=== PATIENT | female | born 1970 | race Caucasian/White ===

== ENCOUNTER 2019-08-02 07:31 | Emergency (ER) | payer BC, MEDICAID ==
[~2019-08-02] VITALS: Ht 162.6 cm; Wt 72.7 kg
[2019-08-02] MEDS ORDERED: normal saline 1000ml 1,000 ML IVB ONE (08:00)
[2019-08-02 08:22] VITALS: BP 145/92
== END 2019-08-02 08:27 | disposition left against medical advice (07) ==
LOC: ER 07:32
DX: J06.9 Acute upper respiratory infection, unspecified (principal); R00.0 Tachycardia, unspecified; I10 Essential (primary) hypertension; F17.200 Nicotine dependence, unspecified, uncomplicated
CPT/HCPCS: 87502; 87503; 99283

== ENCOUNTER 2021-03-23 06:14 | Emergency (ER) | payer BC ==
--- NOTE | 2021-03-23 06:41 | NUR ---
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
--- NOTE | 2021-03-23 07:45 | NUR ---
PT CAME BACK TO BE SEEN AGAIN BUT WHEN CALLED WAS NOT IN THE LOBBY WAITING.
== END 2021-03-23 08:44 | disposition left against medical advice (07) ==
LOC: ER 06:15
DX: H57.10 Ocular pain, unspecified eye (principal); Z53.21 Procedure and treatment not carried out due to patient leaving prior to being seen by health care provider